=== PATIENT | male | born 1940 | race Caucasian/White ===

== ENCOUNTER → 2016-09-21 | Outpatient (CLI) | payer MEDICARE ==
[~2016-09-21] MED LIST: ASCO10006 PO; CEFA1TAB PO; CELE200C PO; CHOL10002 PO; CRV6.25T PO; DIFL5DRO OP; HYDR-3702 PO; LSNP10T PO; LVT.05T PO; MULT1CAP27 PO; NEPA1.7D OP; NO HOME MEDICATIONS; PANT40TA3 PO; SPIR25TA PO; TRAZ-28 PO; VIGAMOX OD; WARF1TAB PO; [UNRECOGNIZED DRUG - CODE] PO
== END ==
LOC: LAB 13:55
PROVIDERS: ATTEND Family Medicine
DX: I48.91 Unspecified atrial fibrillation (principal)
CPT/HCPCS: 36415; 85610

== ENCOUNTER → 2016-09-27 | Outpatient (CLI) | payer MEDICARE | LOC: LAB 09:13 | PROVIDERS: ATTEND Family Medicine | DX: Z51.81 Encounter for therapeutic drug level monitoring (principal); Z79.01 Long term (current) use of anticoagulants | CPT/HCPCS: 36415; 85610 ==

== ENCOUNTER 2016-10-21 16:00 | Outpatient (RCR) | payer MEDICARE | END 2016-10-28 15:44 | disposition home or self-care (01) | LOC: PT 16:00 | PROVIDERS: ATTEND Orthopaedic Surgery | DX: M17.11 Unilateral primary osteoarthritis, right knee (principal) | CPT/HCPCS: 97016; 97110; 97112; 97140; 97161; G8978; G8979; G8980 ==

== ENCOUNTER → 2016-10-21 | Outpatient (CLI) | payer MEDICARE | LOC: RAD 15:21 | PROVIDERS: ATTEND Orthopaedic Surgery | DX: Z96.651 Presence of right artificial knee joint (principal) | CPT/HCPCS: 73560 ==

== ENCOUNTER → 2016-11-25 | Outpatient (CLI) | payer MEDICARE | LOC: LAB 09:07 | PROVIDERS: ATTEND Family Medicine | DX: I48.91 Unspecified atrial fibrillation (principal) | CPT/HCPCS: 36415; 85610 ==

== ENCOUNTER → 2016-12-20 | Outpatient (CLI) | payer MEDICARE ==
[2016-12-20 09:38] LABS: BASOPHILS % (AUTO) 1 % (0-2); EOSINOPHILS # (AUTO) 0.3 10^3uL; EOSINOPHILS % (AUTO) 5 % (0-4); LYMPHOCYTES # (AUTO) 1.4 X10^3; MEAN CORPUSCULAR HGB CONC 33.8 g/dL (31.0-37.0); MEAN CORPUSCULAR VOLUME 98 FL (80-100); MEAN PLATELET VOLUME 9.4 FL (6.0-9.5); MONOCYTES # (AUTO) 0.7 X10^3; MONOCYTES % (AUTO) 11 % (3-11); NEUTROPHILS # (AUTO) 4.3 X10^3; NEUTROPHILS % (AUTO) 64 % (51-67); PLATELET COUNT 234 10^3uL (150-450); WHITE BLOOD COUNT 6.77 10^3uL (4.0-11.0)
[2016-12-20 09:43] LABS: ANION GAP 15.6 MEQ/L (3-15)
== END ==
LOC: LAB 09:18
PROVIDERS: ATTEND Family Medicine
DX: D50.8 Other iron deficiency anemias (principal); R79.89 Other specified abnormal findings of blood chemistry; E83.42 Hypomagnesemia
CPT/HCPCS: 36415; 80048; 83735; 85025

== ENCOUNTER → 2017-01-30 | Outpatient (CLI) | payer MEDICARE | LOC: LAB 09:03 | PROVIDERS: ATTEND Family Medicine | DX: I48.91 Unspecified atrial fibrillation (principal) | CPT/HCPCS: 36415; 85610 ==